=== PATIENT | female | born 1950 | race Caucasian/White ===

== ENCOUNTER → 2016-12-21 | Outpatient (CLI) | payer MEDICARE ==
--- NOTE | 2016-12-21 10:07 | RAD ---
DATE: 12/21/2016 EXAM: MAMMO JUAN SCREENING BILATERAL HISTORY: Routine screening COMPARISON: 04/06/2015 The breast parenchyma is heterogeneously dense, which could reduce sensitivity of mammography. Breast parenchyma level C. FINDINGS: 2-D and 3-D tomosynthesis imaging was performed in CC and MLO projections. No new or enlarging breast densities are seen. Benign type calcifications are present. No suspicious microcalcifications have developed. IMPRESSION: Stable mammograms without evidence of malignancy. BI-RADS CATEGORY: 2 BENIGN FINDING(S) RECOMMENDED FOLLOW-UP: 12M 12 MONTH FOLLOW-UP PQRS compliance statement: Patient information was entered into a reminder system with a target due date for the next mammogram. Mammography is a sensitive method for finding small breast cancers, but it does not detect them all and is not a substitute for careful clinical examination. A negative mammogram does not negate a clinically suspicious finding and should not result in delay in biopsying a clinically suspicious abnormality. "Our facility is accredited by the [employer] Mammography [employer]."
--- NOTE | 2016-12-21 10:09 | KCIC ---
Indication: Postmenopausal. Comparison is made with prior exam from 03/03/2014. Bone mineral analysis of the lumbar spine and left hip was performed. The bone mineral density of the lumbar spine L1-L4 is 0.836 with a T score of -1.9. This compares with 0.789 and -2.3 on prior. The bone mineral density of the left hip is 0.740 with a T score of -1.7. This compares with 0.794 and -1.2. IMPRESSION: Osteopenia of the lumbar spine and left hip. Electronically signed by: Ramin Cross MD (12/21/2016 10:05 AM) [id number]
== END | disposition home or self-care (01) ==
LOC: KCIC MAMMO 08:35
PROVIDERS: ATTEND Family Medicine
DX: Z12.31 Encounter for screening mammogram for malignant neoplasm of breast (principal); M85.89 Other specified disorders of bone density and structure, multiple sites; Z78.0 Asymptomatic menopausal state
CPT/HCPCS: 77063; 77080; G0202; 77067

== ENCOUNTER → 2018-02-06 | Outpatient (CLI) | payer MEDICARE ==
--- NOTE | 2018-02-06 16:59 | KCIC ---
Bilateral digital screening mammograms with 3-D tomosynthesis: Reason for examination: Routine screening. Comparison is made to previous studies dated 12/21/2016 and 04/06/2015. Bilateral mammograms in CC and oblique projections were obtained with 2-D imaging and 3-D tomosynthesis imaging on a Siemens Inspiration unit and reviewed on the workstation. Interpretation was made with the benefit of CAD. The skin and nipples show no abnormalities. No abnormal axillary lymph nodes are seen. The breast parenchyma is extremely dense. (Breast density: Category D.) There appear to be nodular densities posterior laterally at the 3:00 C position of the left breast and centrally at approximately the 9:00 B position of the right breast. Further evaluation with ultrasound is recommended. There are no other dominant masses, suspicious calcifications or architectural distortion. Benign calcifications are present. Impression: Nodular densities suggested bilaterally at the 3:00 C position of the left breast and 9:00 B position of the right breast. Recommend further evaluation with ultrasound. Your patient's mammogram demonstrates that she has dense breast tissue (breast density category C or D), which could hide abnormalities, and if she has other risk factors for breast cancer that have been identified, she might benefit from supplemental screening tests that may be suggested by you as her ordering physician. Dense breast tissue, in and of itself, is a relatively common condition. Therefore, this information is not provided to cause undue concern, but rather to raise your awareness and to promote discussion with your patient regarding the presence of other risk factors, in addition to dense breast tissue. Your patient's mammography results will be sent to her. BI-RAD Category 0: Incomplete. Needs additional imaging evaluation. "Our facility is accredited by the [employer] Mammography [employer]." This patient's information has been entered into a reminder system for the patient to be notified with the results of her examination and a target date for the next mammogram. Electronically signed by: Annemarie Barone MD (02/06/2018 4:55 PM) [id number]
== END | disposition home or self-care (01) ==
LOC: KCIC MAMMO 08:55
PROVIDERS: ATTEND Family Medicine
DX: Z12.31 Encounter for screening mammogram for malignant neoplasm of breast (principal)
CPT/HCPCS: 77063; 77067

== ENCOUNTER → 2018-02-14 | Outpatient (CLI) | payer MEDICARE ==
--- NOTE | 2018-02-14 11:30 | KCIC ---
EXAM: Bilateral breast sonogram. HISTORY: 67-year-old female presents for evaluation of nodularity within both breasts demonstrated on a mammogram dated 02/06/2018. TECHNIQUE: Sonographic imaging of both breasts including all 4 quadrants and the retroareolar regions was performed. COMPARISON: 02/06/2018. FINDINGS: Sonographic imaging of the right breast demonstrates dense breast parenchyma at the 9:00 position. Sonographic imaging of the left breast demonstrates dense breast parenchyma at the 3:00 position. No suspicious solid or cystic lesion is seen. IMPRESSION: 1. Dense breast parenchyma within the lateral aspects of both breasts, corresponding with areas of nodularity on the recent mammogram. No discrete suspicious sonographic lesion is seen. 2. BI-RADS Category 3: Probably benign finding(s). Short term follow up with a bilateral mammogram is recommended to confirm stability of mammographic findings. Electronically signed by: Maria Esther Moura MD (02/14/2018 11:27 AM) [id number]
== END | disposition home or self-care (01) ==
LOC: KCIC US 10:43
PROVIDERS: ATTEND Family Medicine
DX: R92.8 Other abnormal and inconclusive findings on diagnostic imaging of breast (principal)
CPT/HCPCS: 76641